=== PATIENT | male | born 1975 | race Caucasian/White ===

== ENCOUNTER → 2017-07-21 14:44 | Outpatient (CLI) | payer OTHER, SELFPAY | PROVIDERS: Family Provider Family Medicine; PCP Family Medicine; Visit Provider Physician Assistant | DX: J02.9 Acute pharyngitis, unspecified (principal) | CPT/HCPCS: 87081 ==

== ENCOUNTER → 2018-11-05 11:43 | Outpatient (CLI) | payer OTHER, SELFPAY ==
[2018-11-05 11:28] VITALS: BMI 28.1
--- NOTE | 2018-11-05 11:45 | RAD_ITS ---
STUDY: X-RAY - CERVICAL SPINE REASON FOR EXAM: Male, 43 years old. Left shoulder and neck pain. TECHNIQUE: 5 view(s) of the cervical spine were obtained. COMPARISON: None FINDINGS: Normal anterior atlantoaxial articulation. Normal odontoid process. Normal cervical lordosis. Normal vertebral bodies and endplates. There is minor C5-6 intervertebral disc height narrowing. There is borderline osseous encroachment on the left C5-6 intervertebral neural foramen. The soft tissue structures are unremarkable. There is no demonstrated osseous destructive process or fracture of the cervical spine. RAD/Cerv Spine 4 or 5 Views IMPRESSION: Minor C5-6 disc height narrowing as well as borderline osseous encroachment on the left C5-6 neuroforamen. Otherwise, normal x-ray examination of the visualized cervical spine. Electronically Signed: Pito Musa MD at 13:07 EDT , Service support ,
--- NOTE | 2018-11-05 11:45 | RAD_ITS ---
STUDY: X-RAY - LEFT SHOULDER REASON FOR EXAM: Male, 43 years old. Pain. TECHNIQUE: 4 view(s) of the shoulder. COMPARISON: None. FINDINGS: Normal glenohumeral articulation. Normal acromioclavicular joint. Normal acromion. Normal humeral head and visualized proximal humerus. The soft tissue structures are unremarkable. Seen only on the axillary view is a small ossific density near the anterior joint margin, overlapping the distal clavicle. This raises question of chronic ossific bursitis. No distinct donor site is noted to suggest an acute fracture fragment. Normal visualized pulmonary apex. RAD/Shoulder min 2 Views IMPRESSION: Possible chronic ossific bursitis of the left shoulder. No osseous destructive lesion or acute fracture. Electronically Signed: Pito Musa MD at 13:45 EDT , Service support ,
== END ==
PROVIDERS: Family Provider Family Medicine; PCP Family Medicine; Referring Provider Orthopaedic Surgery; Visit Provider Orthopaedic Surgery
DX: M25.512 Pain in left shoulder (principal); R20.0 Anesthesia of skin; R20.2 Paresthesia of skin
CPT/HCPCS: 72050; 73030

== ENCOUNTER → 2018-11-08 10:20 | Outpatient (CLI) | payer OTHER, SELFPAY ==
--- NOTE | 2018-11-08 | IMM_PTH ---
PATIENT: TELMA ECKERT LOC: [facility] U#:[id number] AGE/SX: 50/M ROOM: RE11/08/[address]: Dr. Chiki Guajardo MD : 1975 BED: DIS: SPEC #: [id number] RECD: 11/11/18 15:43 STATUS: MONISHA REMeredith #: [id number] CAYDEN: 11/08/18 00:[address]: Chiki Guajardo DEPT: IMMUNOHISTOCHEMISTRY RECD BY: Ligia Lang ENTERED: 11/11/18 15:45 SP TYPE: IMMUNO OTHR DR: Dr. Eliezer Guajardo III, MD Tissues: Skin of face, NOS Procedures: CK5-6 (add) CK8 (add) MART1 (add) P40 (add) CK7 (initial) S-100 (add) PHYSICIAN & INSTITUTION [place] [id number] SPECIMEN INFORMATION: Tissue Source: Right cheek skin lesion Clinical Info: Right cheek skin lesion Specimen Number: [id number] CPT code: 24397, 48687 x5 METHODOLOGY: Deparaffinized sections of prefer/formalin-fixed tissue or PAP/DQ stained slides are incubated with monoclonal/polyclonal antibodies/oligonucleotide probes. Localization is made via biotin free immunoperoxidase method. Appropriate controls are performed and reacted as expected. Results on target cell population are indicated in the following table: RESULTS: ANTIBODY / CLONE RESULT CK7 (OV-TL12/30) negative CK8 ([id number]) negative CK5-6 (D5 & 1684) negative P40 (BC28) negative S-100 (4C4.9) positive MART-1 (A-103) positive These tests were developed and their performance characteristics determined by [facility]. They may not have been cleared or approved by the U.S. Food and Drug Administration. The FDA has determined that such clearance or approval is not necessary. INTERPRETATION: Right cheek skin lesion, excision: Intradermal nevus. Mild melanocytic hyperplasia, favor reactive. SJ:ashutosh 11/12/18 Case has been reviewed in consultation with Dr. Mccormick who concurs with the above diagnosis. IDC:AM
[2018-11-08 07:08] VITALS: BMI 28.1
--- NOTE | 2018-11-08 10:20 | LES_PTH ---
PATIENT: TELMA ECKERT LOC: [facility] U#:[id number] AGE/SX: 50/M ROOM: RE11/08/[address]: Dr. Chiki Guajardo MD : 1975 BED: DIS: SPEC #: [id number] RECD: 11/10/18 07:23 STATUS: MONISHA IZABELLA #: [id number] CAYDEN: 11/08/18 10:[address]: Chiki Guajardo DEPT: SURGICAL PATHOLOGY RECD BY: Alex Holland ENTERED: 11/10/18 10:28 SP TYPE: Lesion OTHR DR: Dr. Eliezer Guajardo III, MD Tissues: Skin of face, NOS Procedures: Surgery Specimen Level IV HEADER OPERATION: Excision of right cheek skin lesion PRE-OP DIAGNOSIS: Skin lesion of face TISSUE SUBMITTED: Right cheek skin lesion MICROSCOPIC DIAGNOSIS Right cheek skin lesion, excisional biopsy: Intradermal nevus, completely excised. Mild melanocytic hyperplasia, favor reactive. Mild chronic folliculitis. See comment. SHAHRAM:ashutosh 11/11/18 COMMENT Immunohistochemistry ([id number]) supports the above diagnosis. Case has been reviewed in consultation with Dr. Mccormick who concurs with the above diagnosis. IDC:AM MICROSCOPIC DESCRIPTION Slides are reviewed. GROSS DESCRIPTION Received in fixative is one container labeled with the patient's name and designated right cheek. The specimen consists of a piece of abraham-white skin ellipse measuring 1.2 x 1 cm and up to 0.5 cm in thickness. The specimen is inked, serially sectioned and submitted entirely in one cassette. / SHAHRAM:ashutosh 11/10/18 TC:1 CPT: 04095
== END ==
PROVIDERS: Family Provider Family Medicine; PCP Family Medicine; Referring Provider Surgery; Visit Provider Surgery
DX: L98.9 Disorder of the skin and subcutaneous tissue, unspecified (principal)
CPT/HCPCS: 88305; 88341; 88342

== ENCOUNTER → 2019-11-30 08:24 | Outpatient (CLI) | payer OTHER, SELFPAY ==
[2019-04-04 12:14] VITALS: BMI 28.1
--- NOTE | 2019-11-30 08:28 | RAD_ITS ---
STUDY: X-RAY - ESOPHAGUS (BARIUM SWALLOW) WITH FLUOROSCOPY REASON FOR EXAM: Male, 44 years old. Post POEM procedure 2016 -- food gets stuck x 2 months, increasing in frequency -- acid reflux TECHNIQUE: 19 view(s) of the esophagus were obtained following swallowing of barium. FLUOROSCOPY TIME (if supplied): (0:39) minutes/seconds COMPARISON: Comparison is made with prior examination dated 04/16/2017. FINDINGS: There is no demonstrated esophageal foreign body. There is no demonstrated stricture or mucosal abnormality. Normal gastroesophageal junction, without a demonstrated hiatal hernia. The patient ingest a 12 mm tablet of barium. The tablet is trapped at the gastroesophageal junction. Normal visualized aortic arch and descending thoracic aorta. Normal visualized pulmonary parenchyma. Normal visualized osseous structures of the thorax. RAD/Esophagus Dual Contrast IMPRESSION: The 12 mm tablet of barium is trapped at the gastroesophageal junction. Electronically Signed: Mane Al, at 15:14 EDT , Service support ,
== END ==
PROVIDERS: PCP Family Medicine; Referring Provider Internal Medicine Gastroenterology; Visit Provider Internal Medicine Gastroenterology
DX: R13.10 Dysphagia, unspecified (principal)
CPT/HCPCS: 74221

== ENCOUNTER → 2019-12-16 10:24 | Outpatient (CLI) | payer OTHER, SELFPAY ==
[2019-04-04 12:14] VITALS: BMI 28.1
== END ==
PROVIDERS: PCP Family Medicine; Referring Provider Internal Medicine Gastroenterology; Visit Provider Internal Medicine Gastroenterology
DX: Z11.59 Encounter for screening for other viral diseases (principal)
CPT/HCPCS: 87635; C9803; U0003

== ENCOUNTER 2021-04-01 11:38 | Emergency (ER) | payer OTHER, SELFPAY ==
[2021-04-01 11:39] VITALS: BP 156/105; PULSE 68; RESP 15; TEMP 35.7; O2SAT 99; BMI 27.9
--- NOTE | 2021-04-01 12:24 | EX.ED.DYSGE1 ---
HPI History of Present Illness Chief Complaint: Cough Informant: patient Narrative Narrative: Patient is a 46-year-old male presenting with cold-like symptoms. Patient last night started having body aches, cold chills, cough, mild diarrhea and a headache in his temples. He has been taking ibuprofen for symptoms. He took a Covid home antigen test that was faintly positive this morning. He came in for repeat testing. He denies any other complaints at this time. He does has had his first 2 Covid vaccines. 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 [facility] Medical History history of POEM for acalasia Injury of right little finger Mallet deformity of right little finger Phalanx, distal fracture of finger Shoulder pain Skin lesion of face sudden weight loss Home Medications multivitamin with folic acid 1 tab PO DAILY 09/06/16 [History Last Taken Unknown] atorvastatin 40 mg tablet 40 mg PO DAILY 05/17/18 [History Last Taken Unknown] pantoprazole 40 mg tablet,delayed release 40 mg PO BID tab 05/17/18 [History Last Taken Unknown] cetirizine 10 mg tablet 10 mg PO DAILY 11/03/18 [History Last Taken Unknown] naproxen sodium 220 mg capsule 220 mg PO BID 11/03/18 [History Last Taken Unknown] meloxicam 15 mg tablet 15 mg PO DAILY #30 tab 11/05/18 [Rx Last Taken Unknown] Allergy/AdvReac Type Severity Reaction Status Date / Time pseudoephedrine Allergy Severe Unknown Verified 04/01/21 11:41 Surgical History History of shoulder surgery history skin lesion right side of face (~11/08/18) Social History Smoking Status: Never smoker alcohol intake: never ROS ROS ED Constitutional Constitutional ED: Reports chills Eyes Eyes: Denies change in vision ENT ENT ED: Reports rhinorrhea; Denies ear pain or sore throat Cardiovascular Cardiovascular: Denies chest pain Respiratory/Chest Respiratory/Chest: Reports cough; Denies dyspnea Gastrointestinal Gastrointestinal: Reports diarrhea; Denies abdominal pain, nausea or vomiting Genitourinary Genitourinary ED: Denies dysuria or hematuria Musculoskeletal Musculoskeletal: Reports myalgias Integumentary Denies rash Neurologic Neurologic: Reports headache(s); Denies weakness EXAM Physical Exam Const Vital Signs: 04/01/21 11:39 Temperature 96.2 F L Temperature Source Temporal Pulse Rate 68 Respiratory Rate 15 Blood Pressure 156/105 H Blood Pressure Mean 122 Pulse Ox 99 Oxygen Delivery Method Room Air Positive well nourished and well developed General Appearance ED: well developed HEENT Reports TM's clear and moist mucous membranes Tympanic Membrane ED: Yes TM's clear Eyes PERRL and EOMs intact bilaterally Neck no lymphadenopathy and supple Neck Narrative: No meningeal signs Chest Wall inspection of chest normal Resp normal respiratory effort Cardio regular rate and regular rhythm GI normal to inspection, nondistended, normoactive bowel sounds Palpation: soft Extremity normal to inspection Neuro oriented x3 Sensorium / Orientation: alert Motor Exam: Negative for general weakness Psych mental status grossly normal Skin no rashes or lesions noted and no wounds MDM MDM MDM Narrative Medical decision making narrative: Patient evaluated for Covid symptoms with a positive home test. Repeat test confirms that he does not fact have Covid. Patient has hyperlipidemia a BMI of 28 so he will be referred for monoclonal antibody. Patient is given return precautions. He verbalizes agreement understand this plan. Discharged home in stable condition. Counseled on quarantine precautions. Discharge Plan Triage Chief Complaint: Cough ED Provider: Zully Sullivan Dx/Rx/DC Orders Clinical Impression: COVID-19 virus infection Instructions: Coronavirus Disease 2019 (COVID-19): Caring for Yourself or Others Prescriptions: No Action atorvastatin 40 mg tablet 40 mg PO DAILY RF: 0 naproxen sodium [Aleve] 220 mg capsule 220 mg PO BID RF: 0 cetirizine [24Hour Allergy] 10 mg tablet 10 mg PO DAILY RF: 0 meloxicam [Mobic] 15 mg tablet 15 mg PO DAILY Qty: 30 RF: 0 multivitamin with folic acid 1 TABLET tablet 1 tab PO DAILY RF: 0 pantoprazole 40 mg tablet,delayed release (DR/EC) 40 mg PO BID RF: 0 Primary Care Provider: Rod Woodson Referrals: Rod Woodson MD [Primary Care Provider] - Disposition Disposition: Home, Self Care
[2021-04-01 13:44] VITALS: O2SAT 96
== END 2021-04-01 13:45 | disposition home or self-care (01) ==
PROVIDERS: Emergency Provider Emergency Medicine; PCP Family Medicine
DX: U07.1 COVID-19 (principal)
CPT/HCPCS: 87426; 99281; 99282

== ENCOUNTER 2021-04-04 14:30 | Outpatient (CLI) | payer OTHER, SELFPAY ==
[2021-04-04 14:40] VITALS: BP 151/105; PULSE 70; RESP 16; TEMP 36.8; O2SAT 99; BMI 27.2
[2021-04-04 15:33] VITALS: BP 137/95; PULSE 74; RESP 16; TEMP 36.8; O2SAT 98
[2021-04-04 16:11] VITALS: BP 146/94; PULSE 67; RESP 16; TEMP 36.8; O2SAT 98
== END 2021-04-04 16:25 | disposition home or self-care (01) ==
LOC: MS3OUT 14:31 → MS3 14:31
PROVIDERS: PCP Family Medicine; Referring Provider Emergency Medicine; Visit Provider Emergency Medicine
DX: Z23 Encounter for immunization (principal); U07.1 COVID-19
CPT/HCPCS: J7050; M0245; Q0245

== ENCOUNTER 2021-12-12 15:30 | Outpatient (RCR) | payer OTHER, SELFPAY ==
--- NOTE | 2021-12-05 14:49 | HP.OTEVAL_ITS ---
Patient's Visit Information TELMA ECKERT is a 46 year old M, referred to Occupational Therapy by GRACIELA Bernardo, with a diagnosis of 5th metacarpal head fx. Date of Evaluation: 11/27/21 Occupational Therapist: Adriana Cardenas, DIONR/Anne, CHT - Subjective This 46 year old male was seen for OT eval with dx of right 5th metacarpal fx - pt states DOI was 10/17/21 and he was out of town when it happened so when returned on 10/25/21 he was casted and arrives today for custom removable splint to provide protection and support while fx is continuing to heal. pt states stiffness and some pain at times. pt is a teacher and a college football coach. - Pain right hand 3 Pain Intensity Range: 3, 4 - ROM Wrist: right/left WFL MP: right LF 30* flex ext at -5 ROM Comments: pt demo with limited ability to form a composite fist at this time - Strength Strength Comments: will test later date - Sensation Sensation Comments: denies - Quick DASH-Disab of Arm,Shoulder& Hand Quick DASH Score: 58.3325 - Goals Goal:: pt will demo a right b2b outside sales representative strength at 65# or greater to increase pt ind with ADLs and IADLs Goal:: pt will demo full composite fist to hold small objects IND by d/c. Goal:: pt will report pain no greater than 2/10 with use of right hand with ALD sand IADLs by dc Goal:: pt will demo understanding of orthosis use and skin precautions by end of 1st visit - Rehabilitation General Assessment: pt arrives 5 weeks and 6 days post injury- pt demo need for custom orthosis to allow for protection and support while fx is healing- pt demo with limited digit ROM, weakness and has reported limitations with ADLs and IADLs. pt would benefit from skilled OT services 1-2x week for 6 weeks to return his ROM and strength to return to his PLOF. pt demo understanding and agree to POC. Rehabilitation Potential: Good - Anticipated Interventions A/AAROM/PROM, Strengthening, Triggerpoint Release, Modalities, Orthoses, Joint Protection/Energy Conservation, Ergonomic Education, Fine Motor Coord/Cal, Education re Diagnosis - Visit Plan Frequency: 1-2x /Week Duration: 2-4 Weeks TEXT: Thank you for the opportunity to evaluate your patient. For Medicare and Medicare HMO plans, please review the plan of care and approve it. It will need to be FAXED BACK to us at [phone] for Medicare purposes. Please let me know if there are questions or concerns regarding this plan of care. Physician Signature: Date:
--- NOTE | 2022-03-14 11:30 | HP.OTDCSUM ---
It has been my pleasure to treat TELMA ECKERT under orders from GRACIELA Bernardo, for the diagnosis of 5th metacarpal head fx for a total of 3 visit(s). Please see the following information for a summary of their discharge status. % Improvement: 80 Objective/Function: MCP 80*. PIP 96*. pt demo with full composite fist -. a right assistant speech language pathologist strength of 45# and left is 95# Patient Goals: Use Hand/Wrist/Arm Normally Again Goal:: pt will demo a right assistant speech language pathologist strength at 65# or greater to increase pt ind with ADLs and IADLs Goal:: pt will demo full composite fist to hold small objects IND by d/c. Goal:: pt will report pain no greater than 2/10 with use of right hand with ALD sand IADLs by dc Goal:: pt will demo understanding of orthosis use and skin precautions by end of 1st visit Plan: pt to return to Dr. shah d/c If there are questions or concerns regarding this patient's occupational therapy, please fell free to call me at [phone]. Thank you for the referral of this patient. Sincerely, Adriana Cardenas, OTR/L, CHT
== END 2021-12-12 19:00 | disposition home or self-care (01) ==
LOC: OT 15:30
PROVIDERS: PCP Family Medicine
DX: S62.309D Unspecified fracture of unspecified metacarpal bone, subsequent encounter for fracture with routine healing (principal); X58.XXXD Exposure to other specified factors, subsequent encounter
CPT/HCPCS: 97110; 97140; 97166; 97530; 97760